=== PATIENT | female | born 1965 | race Two or more races ===

== ENCOUNTER → 2018-02-12 | Outpatient (CLI) | payer BC ==
[2014-06-11 12:33] VITALS: BMI 33.6
[~2018-02-12] MED LIST: ALP5 PO; CAL25 PO; CAL600 PO; CALC-515 PO; CHOL500045 PO; CIP500 PO; FURO20TA19 PO; HCTZ25 PO; LEVO75TA73 PO; MILK140C3 PO; MULT1TAB54 PO; NAP500; OXYC-373 PO; OXYC-865 PO; PHEN8TAB PO; PHENA100 PO; PROM-110 PO
--- NOTE | 2018-02-12 16:22 | RADIOLOGY IMAGING REPORT ---
FACILITY: [facility] PATIENT NAME: EUGENE BARROW : [id number] MR: [id number] V: [id number] EXAM DATE: [id number] ORDERING PHYSICIAN: JULIAN VERDE TECHNOLOGIST: Laine Louise PROCEDURE:BILATERAL DIGITAL SCREENING MAMMOGRAM WITH CAD ASSISTED INTERPRETATION & 3D TOMOSYNTHESIS COMPARISON:Prior mammograms 10/24/15, 12/22/13. INDICATIONS:SCREENING FINDINGS: Small to moderate amount of fibroglandular tissue is seen throughout the breasts. The parenchymal pattern has remained stable allowing for difference in mammographic technique & patient positioning. There is no evidence of malignant appearing mass, malignant appearing calcifications or other secondary sign of malignancy in either breast. DIAGNOSTIC CATEGORY 1--NEGATIVE. RECOMMENDATIONS: ROUTINE MAMMOGRAM AND CLINICAL EVALUATION. IMPRESSION: BIRADS 1: Negative No significant abnormality is seen. Dictated by: Dina Chaparro M.D. on 02/12/2018 at 10:45 Transcribed by: JESUS MANUEL on 02/12/2018 at 11:15 Approved by: Dina Chaparro M.D. on 02/12/2018 at 16:21 [facility]
== END ==
LOC: MAMO 02-03 00:57
PROVIDERS: ATTEND Family Medicine
DX: Z12.31 Encounter for screening mammogram for malignant neoplasm of breast (principal)
CPT/HCPCS: 77063; 77067

== ENCOUNTER 2019-01-08 06:16 | Emergency (ER) | payer BC ==
[2014-06-11 12:33] VITALS: Wt 77.1 kg
[~2019-01-08 06:16] MED LIST changes: +MILK THISTLE140 M1 PO; -MILK140C3 PO
[2019-01-08] MEDS ORDERED: LISI20TA29 PO (06:31)
[2019-01-08] MEDS ORDERED: LEVO-3 PO (06:31)
[2019-01-08] MEDS ORDERED: CHOL10005 PO (06:31)
[2019-01-08] MEDS ORDERED: HYDR-2966 PO (06:31)
[2019-01-08] MEDS ORDERED: SIMV5TAB69 PO (06:31)
[2019-01-08] MEDS ORDERED: NS(*) 0.9% 1000 ML BAG 1,000 ML IV ONE (06:33)
[2019-01-08] MEDS ORDERED: ONDANSETRON 4 MG/2 ML VIAL IVP ONE (06:35)
[2019-01-08 06:43] LABS: PLATELET COUNT, AUTOMATED 186 K/uL (150-450)
--- NOTE | 2019-01-08 06:43 | ER Report ---
History and Physical Time Seen By MD: 06:33 Hx. of Stated Complaint: patient has been sick for days, cough, fever, body aches, pain in chest, shortness of breath, sinus congestion. was started on tamiflu yesterday, never checked for the flu. since then has had nausea, vomiting, diarrhea. patient hasn't been able to keep meds down. patient statess a lot of pressure in chest. (SHERMAN ASENCIO DO) Time Seen By MD: 07:00 (FUNMILAYO REYES DO) HPI/ROS CHIEF COMPLAINT: Flu? HISTORY OF PRESENT ILLNESS: 53-year-old female presents to the ER with vomiting and diarrhea for the last 24 hours. She began to feel sick on Friday. She describes body aches, headache, fever and chills. Her physician called in a prescription for Tamiflu for influenza yesterday without testing her. She now has chest pressure since she's been vomiting for the last 24 hours. She denies cardiac history. REVIEW OF SYSTEMS: Respiratory: As above Cardiovascular: As above Gastrointestinal: As above Musculoskeletal: [No back pain.] (SHERMAN ASENCIO DO) HPI/ROS Please see Dr. Asencio's note (FUNMILAYO REYES DO) Allergies: Coded Allergies: Sulfa (Sulfonamide Antibiotics) (Verified Allergy, Mild, HIVES, 10/09/10) Home Meds Reported Medications Cholecalciferol (Vitamin D3) (VITAMIN D3) 1,000 Unit Tablet, 1000 UNIT PO QDAY, TAB 01/08/19 Simvastatin (SIMVASTATIN) 5 Mg Tablet, 1 TAB PO QDAY 01/08/19 Levothyroxine Sodium (LEVOTHYROXINE SODIUM) 100 Mcg Tablet, 1 TAB PO QDAY 01/08/19 Hydrochlorothiazide (HYDROCHLOROTHIAZIDE) 25 Mg Tablet, 1 TAB PO QDAY 01/08/19 Lisinopril (LISINOPRIL) 20 Mg Tablet, 1 TAB PO QDAY 01/08/19 Calcitriol (CALCITRIOL) 0.25 Mcg Cap, 0.25 MCG PO QDAY, CAP 07/02/15 Discontinued Reported Medications Levothyroxine Sodium (LEVOTHYROXINE SODIUM) 75 Mcg Tablet, 75 MCG PO QDAY 07/02/15 Discontinued Scripts Oxycodone Hcl/Acetaminophen (PERCOCET 5-325 MG TABLET) 1 Each Tablet, 1 EACH PO Q4H PRN for PAIN, #14 TAB 0 Refills Prov:TRUDI STILL MD 07/02/15 Calcium Carbonate (ELEMENTAL CALCIUM) 600 Mg Tab, 1200 MG PO QID, #40 TAB Prov:PENELOPE PARISH MD 06/13/14 Reviewed Nurses Notes: Yes Old Medical Records Reviewed: Yes (SHERMAN ASENCIO DO) Hx Smoking: No Smoking Status: Never Smoker Exposure to Second Hand Smoke?: No Hx Substance Use Disorder: No Hx Alcohol Use: No (SHERMAN ASENCIO DO) Constitutional Vital Sign - Last 24 Hours 01/08/19 01/08/19 01/08/19 01/08/19 06:21 06:22 06:30 06:31 Temp 98.7 Pulse 78 76 Resp 16 24 B/P (MAP) 109/92 (98) 109/92 114/71 (85) Pulse Ox 90 92 01/08/19 01/08/19 01/08/19 01/08/19 06:45 06:57 07:00 07:04 Pulse 67 Resp 25 B/P (MAP) 126/70 (88) 120/68 (85) Pulse Ox 97 O2 Flow Rate 3.0 01/08/19 01/08/19 01/08/19 01/08/19 07:09 07:22 07:22 07:28 Pulse 70 66 72 Resp 15 18 18 Pulse Ox 98 93 O2 Delivery Nasal Cannula O2 Flow Rate 3.0 01/08/19 01/08/19 01/08/19 01/08/19 07:30 07:39 08:03 08:10 Pulse 67 Resp 11 24 B/P (MAP) 117/75 (89) 118/70 (86) Pulse Ox 96 81 O2 Delivery Room Air (FUNMILAYO REYES DO) Physical Exam Vital signs stable, afebrile, pulse ox 90% on room air General Appearance: The patient is alert, has no immediate need for airway protection and no current signs of toxicity. Slightly pale appearing, skin warm and dry HEENT: Pupils equal and round no injection. Oropharynx with mild erythema, no e xudate Respiratory: Chest is non tender, lungs are clear to auscultation. No wheezing or rails Cardiac: regular rate and rhythm, no murmur Gastrointestinal: Abdomen is soft mild diffuse tenderness no masses, bowel sounds normal. Musculoskeletal: Neck: Neck is supple and non tender. No lymphadenopathy Extremities have full range of motion and are non tender. Skin: No rashes or lesions. DIFFERENTIAL DIAGNOSIS: After history and physical exam differential diagnosis was considered for adult fever including but not limited to viral syndromes including influenza, urinary tract infection, pneumonia and sepsis. Additionally, abdominal pain including but not limited to appendicitis, cholecystitis, gastritis and urinary tract infection. (SHERMAN ASENCIO DO) Physical Exam Please see Dr. Asencio's note (FUNMILAYO REYES DO) Medical Decision Making Data Points Result Diagram: 01/08/19 0631 01/08/19 0631 Laboratory Hematology Test 01/08/19 06:27 01/08/19 06:31 01/08/19 08:49 Influenza Virus Type A (PCR) Positive (NEGATIVE) Influenza Virus Type B (PCR) Negative (NEGATIVE) Red Blood Count 5.33 M/uL (4.17-5.56) Mean Corpuscular Volume 80.2 fL (80.0-96.0) Mean Corpuscular Hemoglobin 28.2 pg (26.0-33.0) Mean Corpuscular Hemoglobin Concent 35.2 g/dL (32.0-36.0) Red Cell Distribution Width 13.7 % (11.5-14.5) Mean Platelet Volume 8.1 fL (7.2-11.1) Neutrophils (%) (Auto) 48.4 % (39.4-72.5) Lymphocytes (%) (Auto) 39.3 % (17.6-49.6) Monocytes (%) (Auto) 11.7 % (4.1-12.4) Eosinophils (%) (Auto) 0.0 % (0.4-6.7) Basophils (%) (Auto) 0.6 % (0.3-1.4) Nucleated RBC Relative Count (auto) 0.1 /100WBC Neutrophils # (Auto) 1.9 K/uL (2.0-7.4) Lymphocytes # (Auto) 1.5 K/uL (1.3-3.6) Monocytes # (Auto) 0.5 K/uL (0.3-1.0) Eosinophils # (Auto) 0.0 K/uL (0.0-0.5) Basophils # (Auto) 0.0 K/uL (0.0-0.1) Nucleated RBC Absolute Count (auto) 0.00 K/uL Sodium Level 139 mmol/L (137-145) Potassium Level 3.4 mmol/L (3.5-5.0) Chloride Level 97 mmol/L (98-107) Carbon Dioxide Level 31 mmol/L (22-31) Blood Urea Nitrogen 16 mg/dl (7-18) Creatinine 0.80 mg/dl (0.52-1.04) Glomerular Filtration Rate Calc > 60.0 Random Glucose 116 mg/dl (75-110) Calcium Level 8.4 mg/dl (8.4-10.2) Total Bilirubin 0.6 mg/dl (0.2-1.3) Aspartate Amino Transf (AST/SGOT) 60 U/L (0-35) Alanine Aminotransferase (ALT/SGPT) 73 U/L (0-56) Alkaline Phosphatase 74 U/L (0-126) Troponin I < 0.012 ng/ml Total Protein 7.8 g/dl (6.3-8.2) Albumin 4.6 g/dl (3.5-5.0) Amylase Level 83 U/L (0-110) Lipase 385 U/L (23-300) Chemistry Test 01/08/19 06:27 01/08/19 06:31 01/08/19 08:49 Influenza Virus Type A (PCR) Positive (NEGATIVE) Influenza Virus Type B (PCR) Negative (NEGATIVE) White Blood Count 3.8 k/uL (4.5-11.0) Red Blood Count 5.33 M/uL (4.17-5.56) Hemoglobin 15.0 g/dL (12.0-16.0) Hematocrit 42.7 % (34.0-47.0) Mean Corpuscular Volume 80.2 fL (80.0-96.0) Mean Corpuscular Hemoglobin 28.2 pg (26.0-33.0) Mean Corpuscular Hemoglobin Concent 35.2 g/dL (32.0-36.0) Red Cell Distribution Width 13.7 % (11.5-14.5) Platelet Count 186 K/uL (150-450) Mean Platelet Volume 8.1 fL (7.2-11.1) Neutrophils (%) (Auto) 48.4 % (39.4-72.5) Lymphocytes (%) (Auto) 39.3 % (17.6-49.6) Monocytes (%) (Auto) 11.7 % (4.1-12.4) Eosinophils (%) (Auto) 0.0 % (0.4-6.7) Basophils (%) (Auto) 0.6 % (0.3-1.4) Nucleated RBC Relative Count (auto) 0.1 /100WBC Neutrophils # (Auto) 1.9 K/uL (2.0-7.4) Lymphocytes # (Auto) 1.5 K/uL (1.3-3.6) Monocytes # (Auto) 0.5 K/uL (0.3-1.0) Eosinophils # (Auto) 0.0 K/uL (0.0-0.5) Basophils # (Auto) 0.0 K/uL (0.0-0.1) Nucleated RBC Absolute Count (auto) 0.00 K/uL Glomerular Filtration Rate Calc > 60.0 Calcium Level 8.4 mg/dl (8.4-10.2) Total Bilirubin 0.6 mg/dl (0.2-1.3) Aspartate Amino Transf (AST/SGOT) 60 U/L (0-35) Alanine Aminotransferase (ALT/SGPT) 73 U/L (0-56) Alkaline Phosphatase 74 U/L (0-126) Troponin I < 0.012 ng/ml Total Protein 7.8 g/dl (6.3-8.2) Albumin 4.6 g/dl (3.5-5.0) Amylase Level 83 U/L (0-110) Lipase 385 U/L (23-300) Urinalysis Test 01/08/19 08:49 (FUNMILAYO REYES DO) EKG/Imaging EKG Interpretation 12 lead EK Rhythm: normal sinus rhythm [place]: normal QRS: normal ST segments: normal, no evidence of ischemia or dysrhythmia Imaging X-ray: Two-view chest x-ray was obtained. I viewed the images myself on the PACS system. My interpretation of the images is: No infiltrate, no effusion, normal mediastinum. The radiologist interpretation had no clinically significant variation from this interpretation. (SHERMAN ASENCIO DO) Imaging PATIENT NAME: Tammie Williamson : 1965 MR: [id number] V: [id number] EXAM DATE: [id number] ORDERING PHYSICIAN: SHERMAN ASENCIO TECHNOLOGIST: Location: [facility] Patient: Tammie Williamson : 1965 Visit/Account:[id number] Date of Sevice: 01/08/2019 CHEST PA LAT INDICATION: Chest pain, cough, fever COMPARISON: None available FINDINGS: Frontal and lateral views obtained. The cardiac silhouette is normal in size. No pneumothorax. Clear lungs. Normal osseous structures. No pleural fluid. IMPRESSION: Normal chest radiographs. Report Dictated By: Carlos Lo MD at 01/08/2019 7:19 AM (FUNMILAYO REYES DO) ED Course/Re-evaluation Clinical Indication for ER IV: Hydration, IV Access ED Course Initial H&P was done. The differential diagnoses was considered. Patient with fever and chills, body aches consistent with influenza. She was started on Tamiflu by her primary care doctor the day before. Diagnostic evaluation was undertaken. Rapid influenza was pending at discharge. When care was turned over to Dr. Reyes. (SHERMAN ASENCIO DO) ED Course I assumed patient care from Dr. Asencio at shift change at 7:00. Patient was ambulated and found to be hypoxic. Patient was diagnosed with influenza. Patient was given supplemental oxygen until she is able follow-up with her primary care physician. Return precautions provided. Decision to Disposition Date: Jan 08, 2019 Decision to Disposition Time: 08:55 (FUNMILAYO REYES DO) Depart Departure Latest Vital Signs Vital Signs Date Time Temp Pulse Resp B/P (MAP) Pulse Ox O2 Delivery O2 Flow Rate FiO2 01/08/19 08:10 24 81 Room Air 01/08/19 08:03 118/70 (86) 01/08/19 07:39 67 01/08/19 07:22 3.0 01/08/19 06:22 98.7 (FUNMILAYO REYES DO) Impression: Primary Impression: Influenza A Additional Impression: Hypoxia Condition: Improved Disposition: HOME OR SELF-CARE Referrals: JULIAN VERDE DO (PCP) Departure Forms: ER Transition Record, Home Oxygen, Nebulizer RX, Home O xygen Company Chosen by Patient: [facility] Home Oxygen Durable Medical Equipment-Oxygen: Portable Oxygen Gas Reason for Use/Diagnosis: Hypoxia in the setting of influenza. Medications Reconciliation, Patient Portal Information Patient Instructions: Influenza (DC) Additional Instructions: Please use supplemental oxygen until you're able to follow-up with your primary care physician. Please follow-up with her primary care physician in the next 24- 48 hours. You were diagnosed with influenza, continue your Tamiflu as prescribed. Please return immediately if you develop increased shortness breath, fevers, nausea, vomiting. Problem Qualifiers SHERMAN ASENCIO DO Jan 08, 2019 06:43 FUNMILAYO REYES DO Jan 08, 2019 07:48
--- NOTE | 2019-01-08 07:02 | EKG ---
FACILITY: [facility] [place] PATIENT NAME: EUGENE BARROW : [id number] MR: [id number] V: [id number] EXAM DATE: ORDERING PHYSICIAN: SHERMAN HUNTER TECHNOLOGIST: IDANIA Donovan Reason : RESPIRATORY Blood Pressure : / mmHG Vent. Rate : 070 BPM Atrial Rate : 070 BPM P-R Int : 140 ms QRS Dur : 100 ms QT Int : 438 ms P-R-T Axes : 057 018 030 degrees QTc Int : 473 ms Normal sinus rhythm Normal ECG When compared with ECG of 16-JUL-2016 11:14, No significant change was found Confirmed by Jose Martins ([id number]) on 01/08/2019 7:24:38 PM Referred By: Confirmed By:Jose Davis
[2019-01-08] MEDS ORDERED: ALBUTEROL/IPRATROPIUM 3 ML NEB NEB ONE (07:20)
--- NOTE | 2019-01-08 07:25 | RADIOLOGY IMAGING REPORT ---
FACILITY: [facility] PATIENT NAME: Tammie Williamson : 1965 MR: [id number] V: [id number] EXAM DATE: ORDERING PHYSICIAN: SHERMAN HUNTER TECHNOLOGIST: Location: [facility] [place] Patient: Tammie Williamson : 1965 Visit/Account:[id number] Date of Sevice: 01/08/2019 CHEST PA LAT INDICATION: Chest pain, cough, fever COMPARISON: None available FINDINGS: Frontal and lateral views obtained. The cardiac silhouette is normal in size. No pneumot horax. Clear lungs. Normal osseous structures. No pleural fluid. IMPRESSION: Normal chest radiographs. Report Dictated By: Carlos Lo MD at 01/08/2019 7:19 AM Report E-Signed By: Carlos Lo MD at 01/08/2019 7:21 AM WSN:[id number]
[2019-01-08 09:00] VITALS: BP 119/68
== END 2019-01-08 09:29 | disposition home or self-care (01) ==
LOC: ER 06:54
DX: J09.X2 Influenza due to identified novel influenza A virus with other respiratory manifestations (principal); R09.02 Hypoxemia
CPT/HCPCS: 71046; 81001; 82150; 83690; 84484; 85025; 87502; 93005; 94640; 96361; 96374; 99284; J2405; J7030; J7620; 82040; 82247; 82310; 82374; 82435; 82565; 82947; 84075; 84132; 84155; 84295; 84450; 84460; 84520